=== PATIENT | female | born 1985 | race Caucasian/White ===

== ENCOUNTER 2019-08-07 13:34 | Emergency (ER) | payer OTHER ==
[~2019-08-07] VITALS: Ht 160 cm; Wt 122.5 kg
[2019-08-07 14:17] LABS: ABSOLUTE BASOPHILS 0.1 thou/uL (0.0-0.2); ABSOLUTE EOSINOPHILS 0.3 thou/uL (0.0-0.7); ABSOLUTE LYMPHOCYTES 3.5 thou/uL (0.8-5.3); ABSOLUTE MONOCYTES 0.6 thou/uL (0.0-1.2); ABSOLUTE NEUTROPHILS 6.6 thou/uL (1.6-8.1); BASOPHILS 0.6 %; EOSINOPHILS 2.8 %; HEMATOCRIT 35.4 % (37.0-47.0); HEMOGLOBIN 11.1 gm/dL (12.0-15.0); MCH 22.3 pg (26.0-34.0); MCHC 31.5 g/dL (28.0-37.0); NUCLEATED RBCS 0 /100WBC; PLATELET COUNT* 394 thou/uL (150-400); POLYS 59.6 %; RBC 4.99 mil/uL (4.20-5.00); RDW-CV 17.6 % (10.5-14.5)
[2019-08-07 14:26] LABS: ANION GAP 12 mmol/L (7-16); BUN 9 mg/dL (7-18); CHLORIDE 101 mmol/L (98-107); CO2 24 mmol/L (21-32); CREATININE 0.8 mg/dL (0.6-1.3); GLUCOSE 147 mg/dL (70-99); POTASSIUM 3.9 mmol/L (3.5-5.1); SODIUM 137 mmol/L (136-145)
[2019-08-07 14:35] LABS: ALBUMIN 3.4 g/dL (3.4-5.0); ALKALINE PHOSPHATASE 88 U/L (46-116); SGOT 19 U/L (15-37); SGPT 41 U/L (30-65); TOTAL BILIRUBIN 0.2 mg/dL (<0.1-1.0); TROPONIN-I LEVEL <0.06 ng/mL (<0.06)
--- NOTE | 2019-08-07 14:36 | EKG ---
[place] [address] ELECTROCARDIOGRAM REPORT Name: ALEXUS PAGE Room: [facility]#: [id number] Admission: 08/07/19 Attend Phys: Discharge: Date of : 87 Report #: [id number] THIS REPORT FOR: //name// [facility] ED Test Date: 2019-08-07 Test Time: 13:51:40 Pat Name: ALEXUS PAGE Department: Room: Gender: F Speech Clinician: ANDRES : 1985 Requested By: Alexus Cruz Order Number: [id number] MD: Wilver Walker Measurements Intervals [place] Rate: 96 P: 14 ME: 147 QRS: -10 QRSD: 145 T: 144 QT: 385 QTc: 487 Interpretive Statements Sinus rhythm Left bundle branch block No previous ECG available for comparison Electronically Signed On 08-07-2019 14:36:18 [employer] by Wilver Walker [email or web address] <ELECTRONICALLY SIGNED> By: Wilver Walker MD, [facility] 08/07/19 1436 [id number] 1351 Wilver Walker MD, FACC /EPI
[2019-08-07 14:41] LABS: PLATELET ESTIMATE ADEQUATE
[2019-08-07 14:42] LABS: ANISOCYTOSIS 1+; POLYCHROMASIA 1+
[2019-08-07] MEDS ORDERED: VISTARIL 25 MG25 M1 PO (14:59)
[2019-08-07] MEDS ORDERED: ZESTRIL20 MG PO (14:59)
[2019-08-07 15:23] VITALS: BP 145/85
== END 2019-08-07 15:24 | disposition home or self-care (01) ==
LOC: M.ERS 13:34
PROVIDERS: Nurse Practitioner
DX: I10 Essential (primary) hypertension (principal); F17.210 Nicotine dependence, cigarettes, uncomplicated; Z98.890 Other specified postprocedural states